=== PATIENT | female | born 1940 | race Caucasian/White ===

== ENCOUNTER → 2017-10-17 08:12 | Outpatient (CLI) | payer OTHER, SELFPAY ==
--- NOTE | 2017-10-17 08:14 | DI.MRI.S_ITS ---
PROCEDURE: MR SHOULDER LT W CON INDICATIONS: suspected rotator cuff tear TECHNIQUE: After the administration of 12 mL of dilute intra-articular Gadolinium contrast, oblique coronal T1 and T2 spin echo with fat saturation, oblique sagittal T1 spin echo with and without fat saturation, oblique sagittal T2 fast spin echo with fat saturation, axial T1 spin echo with fat saturation through the shoulder. COMPARISON: None. FINDINGS: Image quality: Excellent. Rotator cuff: Severe supraspinatus tendinopathy and thickening is present. There is a full-thickness tear involving the critical zone measuring approximately 1 cm on coronal image 11 series 4. The infraspinatus and teres minor tendons appear intact. There is mild thickening and low-grade intrasubstance signal change of the subscapularis tendon suggesting mild tendinopathy and low-grade articular surface fraying. There is atrophy of the supraspinatus muscle belly. There are adjacent cystic/focal fluid collections adjacent to the supraspinatus muscle, near the musculotendinous junction presumably ganglion cysts Bones and bursae: No bone marrow contusions or fractures. Moderate acromioclavicular joint degeneration. The acromion demonstrates conventional anatomy, without an os acromiale. Capsule and soft tissues: There is chronic background circumferential fraying/degeneration of the labrum. However, there is a superimposed posterior labral tear with adjacent segmental osseous degenerative changes in the glenoid rim. Incidental [place] complex anatomic variation is noted. The glenohumeral ligaments appear intact. The long head of the biceps tendon demonstrates normal location and morphology. The rotator interval appears normal, without fibrosis. The coracohumeral ligament is of normal thickness. No intra-articular bodies. IMPRESSION: Full-thickness tear of the critical zone of the supraspinatus tendon. Atrophy of the supraspinatus muscle belly. Subscapularis tendinopathy and low-grade articular surface fraying. Posterior labral tear (chronic) with background circumferential age related degeneration of the labrum. Dictated by: Luis Alberto Fischer M.D. on 10/17/2017 at 9:44 Approved by: Luis Alberto Fischer M.D. on 10/17/2017 at 9:59
--- NOTE | 2017-10-17 08:14 | DI.RAD.S_ITS ---
PROCEDURE: FL ARTHROGRAM SHOULDER LT INDICATIONS: Suspected rotator cuff tear. TECHNIQUE: The indications, alternatives, benefits, risks, and complications of the procedure were explained to the patient. Written informed consent was obtained and placed in the chart. The left shoulder was examined fluoroscopically and a site for needle placement chosen for entry into the glenohumeral joint from an anterior approach. The skin was prepped and draped in a sterile fashion, and 1% lidocaine infiltrated from skin down to joint capsule. A spinal needle was inserted into the glenohumeral joint, and a small amount of iodinated contrast media injected to confirm intra-articular placement of the needle tip. This was followed by approximately 12 mL dilute solution of a gadolinium containing MR contrast agent. The needle was removed and a dressing was applied. The patient was given postprocedural instructions and sent to the MR suite for MR imaging. FINDINGS: A single fluoroscopic spot image demonstrates intra-articular location of injected iodinated contrast. IMPRESSION: Successful fluoroscopically guided administration of dilute Gadolinium solution into the left shoulder joint for MR arthrogram. Dictated by: Gil Corrales M.D. on 10/17/2017 at 9:55 Approved by: Gil Corrales M.D. on 10/17/2017 at 10:04
== END ==
PROVIDERS: Family Provider Family Medicine; PCP Family Medicine; Visit Provider Family Medicine
DX: M75.102 Unspecified rotator cuff tear or rupture of left shoulder, not specified as traumatic (principal); S43.402A Unspecified sprain of left shoulder joint, initial encounter; M75.92 Shoulder lesion, unspecified, left shoulder; E03.9 Hypothyroidism, unspecified; M85.88 Other specified disorders of bone density and structure, other site; Z78.0 Asymptomatic menopausal state; G89.29 Other chronic pain; Z87.891 Personal history of nicotine dependence
CPT/HCPCS: 23350; 73040; 73222; 77002; 77080

== ENCOUNTER → 2018-02-16 07:41 | Outpatient (CLI) | payer OTHER, SELFPAY ==
[2018-02-16 08:20] LABS: Add Manual Diff / Slide Review NO; Basophils Percent Auto 0.9 % (0-2); Eosinophils Percent Auto 1.3 % (2-4); Hematocrit 38.7 % (36-46); Hemoglobin 13.2 g/dL (12.0-16.0); Mean Corpuscular HGB Conc 34.2 % (30-36); Mean Corpuscular Hemoglobin 31.8 PG (26-34); Monocytes Percent Auto 5.8 % (3-14); Neutrophils Absolute Auto 4300 /uL (3000-5900); Platelet Count 278 X10^3/uL (150-400); Red Blood Cell Count 4.16 X10^6/uL (4.0-5.2); Red Cell Distribution Width 13.5 % (11.6-14.8); White Blood Cell Count 7.2 X10^3/uL (4.5-11.0)
[2018-02-16 08:50] LABS: Alanine Aminotransferase 26 IU/L (9-52); Albumin 4.5 g/dL (3.5-5.0); Albumin Globulin Ratio 1.6 (1.0-2.8); Alkaline Phosphatase 84 U/L (38-126); Aspartate Aminotransferase 28 IU/L (14-36); BUN Creatinine Ratio 17.5 (6-22); Bilirubin Total 0.6 mg/dL (0.2-1.3); Blood Urea Nitrogen 14 mg/dL (7-17); Calcium 9.4 mg/dL (8.4-10.2); Carbon Dioxide 30 mmol/L (22-32); Chloride 102 mmol/L (98-107); Cholesterol 218 mg/dL (140-199); Estimated Glomerular Filt Rate > 60.0 mL/min (>60); Globulin 2.8 g/dL (1.7-4.1); Glucose 101 mg/dL (80-110); HDL Cholesterol 59 mg/dL (40-60); HEMOLYSIS < 15 (0-50); LDL Cholesterol Calculated 143 mg/dL (<100); Potassium 4.2 mmol/L (3.4-5.1); Sodium 143 mmol/L (137-145); Total Protein 7.3 g/dL (6.3-8.2); Triglycerides 78 mg/dL (35-150)
[2018-02-16 09:23] LABS: TSH w/ Reflex to FT4 2.25 uIU/mL (0.47-4.68)
== END ==
PROVIDERS: Family Medicine; PCP Student in an Organized Health Care Education/Training Program; Visit Provider Student in an Organized Health Care Education/Training Program
DX: L40.50 Arthropathic psoriasis, unspecified (principal); E78.5 Hyperlipidemia, unspecified; E03.9 Hypothyroidism, unspecified
CPT/HCPCS: 36415; 80053; 80061; 84443; 85025

== ENCOUNTER → 2018-12-06 09:29 | Outpatient (CLI) | payer MEDICARE, SELFPAY ==
[2018-12-06 10:47] LABS: Add Manual Diff / Slide Review NO; Basophils Absolute Auto 100 /uL (0-100); Eosinophils Absolute Auto 200 /uL (0-450); Eosinophils Percent Auto 2.5 % (2-4); Hematocrit 42.1 % (36-46); Hemoglobin 14.4 g/dL (12.0-16.0); Lymphocytes Absolute Auto 1500 /uL (1100-4500); Lymphocytes Percent Auto 23.3 % (25-40); Mean Corpuscular HGB Conc 34.2 % (30-36); Mean Corpuscular Hemoglobin 31.5 PG (26-34); Monocytes Absolute Auto 400 /uL (0-900); Monocytes Percent Auto 6.3 % (3-14); Neutrophils Absolute Auto 4400 /uL (1500-7000); Neutrophils Percent Auto 66.9 % (50-75); Platelet Count 308 X10^3/uL (150-400); Red Blood Cell Count 4.57 X10^6/uL (4.0-5.2); Red Cell Distribution Width 12.7 % (11.6-14.8); White Blood Cell Count 6.6 X10^3/uL (4.5-11.0)
[2018-12-06 11:52] LABS: HEMOLYSIS < 15 (0-50); Sodium 140 mmol/L (137-145)
[2018-12-06 11:54] LABS: Alanine Aminotransferase 24 IU/L (9-52); Albumin 4.7 g/dL (3.5-5.0); Albumin Globulin Ratio 1.7 (1.0-2.8); Alkaline Phosphatase 102 U/L (38-126); Aspartate Aminotransferase 30 IU/L (14-36); BUN Creatinine Ratio 14.3 (6-22); Bilirubin Total 0.8 mg/dL (0.2-1.3); Blood Urea Nitrogen 10 mg/dL (7-17); Calcium 9.7 mg/dL (8.4-10.2); Carbon Dioxide 25 mmol/L (22-32); Chloride 101 mmol/L (98-107); Estimated Glomerular Filt Rate > 60.0 mL/min (>60); Globulin 2.8 g/dL (1.7-4.1); Glucose 134 mg/dL (80-110); Potassium 4.2 mmol/L (3.4-5.1); Total Protein 7.5 g/dL (6.3-8.2)
[2018-12-06 12:02] LABS: Hepatitis B Surface Antigen NEGATIVE s/c (NEGATIVE)
[2018-12-06 12:11] LABS: HIV 1 and 2 Antibody NEGATIVE (NEGATIVE); Hep C Virus Ab w/Reflex Quant NEGATIVE s/c (NEGATIVE)
[2018-12-09 14:01] LABS: Mitogen-NIL 9.31 IU/mL; QuantiFERON TB NEGATIVE (Negative); TB1-NIL 0.02 IU/mL; TB2-NIL 0.01 IU/mL
== END ==
PROVIDERS: PCP Student in an Organized Health Care Education/Training Program; Visit Provider Physician Assistant
DX: L40.0 Psoriasis vulgaris (principal)
CPT/HCPCS: 36415; 80053; 85025; 86480; 86703; 86803; 87340

== ENCOUNTER → 2019-03-06 09:49 | Outpatient (CLI) | payer MEDICARE, SELFPAY ==
[2019-03-09 14:10] LABS: Mitogen-NIL > 10.00 IU/mL; NIL 0.03 IU/mL; QuantiFERON TB NEGATIVE (Negative); TB1-NIL < 0.01 IU/mL; TB2-NIL < 0.01 IU/mL
== END ==
PROVIDERS: Family Provider Nurse Practitioner Psychiatric/Mental Health; PCP Nurse Practitioner; Visit Provider Physician Assistant
DX: L40.0 Psoriasis vulgaris (principal)
CPT/HCPCS: 36415; 86480

== ENCOUNTER → 2019-08-14 07:29 | Outpatient (CLI) | payer OTHER, SELFPAY ==
[2019-08-14 09:42] LABS: Alanine Aminotransferase 39 IU/L (<35); Albumin 4.5 g/dL (3.5-5.0); Albumin Globulin Ratio 1.5 (1.0-2.8); Alkaline Phosphatase 104 U/L (38-126); Aspartate Aminotransferase 47 IU/L (14-36); BUN Creatinine Ratio 14.4 (6-22); Bilirubin Total 0.4 mg/dL (0.2-1.3); Blood Urea Nitrogen 13 mg/dL (7-17); Calcium 9.2 mg/dL (8.4-10.2); Carbon Dioxide 28 mmol/L (22-32); Chloride 103 mmol/L (98-107); Estimated Glomerular Filt Rate > 60.0 mL/min (>60); Globulin 3.1 g/dL (1.7-4.1); Glucose 104 mg/dL (80-110); HEMOLYSIS < 15 (0-50); Potassium 4.9 mmol/L (3.4-5.1); Sodium 139 mmol/L (137-145); Total Protein 7.6 g/dL (6.3-8.2)
[2019-08-14 10:39] LABS: Microalbumin Urine Random < 0.6 mg/dL (0-1.6)
[2019-08-14 12:34] LABS: Cholesterol 227 mg/dL (140-199); HDL Cholesterol 53 mg/dL (40-60); LDL Cholesterol Calculated 162 mg/dL (<100); Triglycerides 59 mg/dL (35-150)
[2019-08-14 12:48] LABS: Free T3, Triiodothyronine Free 2.89 pg/mL (2.77-5.27); Free T4, Direct Thyroxine 1.04 ng/dL (0.78-2.19)
== END ==
PROVIDERS: Family Provider Nurse Practitioner Psychiatric/Mental Health; PCP Nurse Practitioner; Referring Provider Nurse Practitioner; Visit Provider Nurse Practitioner
DX: Z13.220 Encounter for screening for lipoid disorders (principal); Z13.6 Encounter for screening for cardiovascular disorders; E78.2 Mixed hyperlipidemia; F32.9 Major depressive disorder, single episode, unspecified; F39 Unspecified mood [affective] disorder; I10 Essential (primary) hypertension
CPT/HCPCS: 36415; 80053; 80061; 82043; 82570; 84439; 84443; 84481

== ENCOUNTER → 2019-08-30 09:11 | Outpatient (CLI) | payer OTHER, SELFPAY ==
[2019-08-31 00:36] LABS: HBsAg Screen Negative (Negative); Hepatitis A Antibody IgM Negative (Negative); Hepatitis B Core Antibody IgM Negative (Negative); Hepatitis C Antibody <0.1 s/co ratio (0.0-0.9)
== END ==
PROVIDERS: Family Provider Nurse Practitioner Psychiatric/Mental Health; PCP Nurse Practitioner; Referring Provider Nurse Practitioner; Visit Provider Nurse Practitioner
DX: R74.0 Nonspecific elevation of levels of transaminase and lactic acid dehydrogenase [LDH] (principal)
CPT/HCPCS: 36415; 80074

== ENCOUNTER → 2019-09-26 10:00 | Outpatient (CLI) | payer OTHER, SELFPAY ==
[2019-09-26 10:30] LABS: Add Manual Diff / Slide Review NO; Basophils Absolute Auto 100 /uL (0-100); Basophils Percent Auto 0.7 % (0-2); Eosinophils Absolute Auto 100 /uL (0-450); Hematocrit 42.2 % (36-46); Hemoglobin 14.1 g/dL (12.0-16.0); Lymphocytes Absolute Auto 2400 /uL (1100-4500); Lymphocytes Percent Auto 30.2 % (25-40); Mean Corpuscular HGB Conc 33.5 % (30-36); Mean Corpuscular Hemoglobin 32.1 PG (26-34); Mean Corpuscular Volume 95.8 fL (80-100); Monocytes Absolute Auto 500 /uL (0-900); Monocytes Percent Auto 6.1 % (3-14); Neutrophils Absolute Auto 4900 /uL (1500-7000); Platelet Count 256 X10^3/uL (150-400); Red Cell Distribution Width 13.6 % (11.6-14.8)
[2019-09-26 10:50] LABS: Alanine Aminotransferase 28 IU/L (<35); Albumin 4.3 g/dL (3.5-5.0); Albumin Globulin Ratio 1.5 (1.0-2.8); Alkaline Phosphatase 78 U/L (38-126); Aspartate Aminotransferase 39 IU/L (14-36); BUN Creatinine Ratio 13.4 (6-22); Bilirubin Total 0.6 mg/dL (0.2-1.3); Bilirubin Unconjugated 0.6 mg/dL (0.0-1.1); Blood Urea Nitrogen 11 mg/dL (7-17); Calcium 9.6 mg/dL (8.4-10.2); Carbon Dioxide 29 mmol/L (22-32); Chloride 103 mmol/L (98-107); Estimated Glomerular Filt Rate > 60.0 mL/min (>60); Globulin 2.8 g/dL (1.7-4.1); Glucose 123 mg/dL (80-110); HEMOLYSIS < 15 (0-50); Potassium 4.1 mmol/L (3.4-5.1); Sodium 139 mmol/L (137-145); Total Protein 7.1 g/dL (6.3-8.2)
== END ==
PROVIDERS: Family Provider Nurse Practitioner Psychiatric/Mental Health; PCP Nurse Practitioner; Referring Provider Physician Assistant; Visit Provider Physician Assistant
DX: L40.0 Psoriasis vulgaris (principal)
CPT/HCPCS: 36415; 80048; 80076; 85025

== ENCOUNTER → 2020-02-26 09:57 | Outpatient (CLI) | payer OTHER, SELFPAY ==
--- NOTE | 2020-02-26 10:09 | DI.RAD.S_ITS ---
PROCEDURE: XR CHEST 2V INDICATIONS: unintentional weight loss, previous smoker TECHNIQUE: 2 views of the chest were acquired. COMPARISON: RG, XR CXR 1 VIEW, 11/13/2005, 11:36. FINDINGS: Surgical changes and devices: None. Lungs and pleura: Hyperinflation consistent with COPD. Lungs are clear. No pleural effusions or pneumothorax. Mediastinum: Mediastinal contours are normal. Heart size is normal. Bones and chest wall: No suspicious bony abnormalities. Soft tissues appear unremarkable. IMPRESSION: 1. Hyperinflation consistent with COPD. 2. No acute cardiopulmonary disease. Dictated by: Jose Woods M.D. on 02/26/2020 at 10:47 Approved by: Jose Woods M.D. on 02/26/2020 at 10:48
[2020-02-26 12:22] LABS: Add Manual Diff / Slide Review NO; Basophils Absolute Auto 100 /uL (0-100); Basophils Percent Auto 0.8 % (0-2); Eosinophils Absolute Auto 100 /uL (0-450); Hematocrit 40.9 % (36-46); Hemoglobin 13.9 g/dL (12.0-16.0); Lymphocytes Absolute Auto 2300 /uL (1100-4500); Lymphocytes Percent Auto 29.9 % (25-40); Mean Corpuscular HGB Conc 33.8 % (30-36); Mean Corpuscular Hemoglobin 32.3 PG (26-34); Mean Corpuscular Volume 95.3 fL (80-100); Monocytes Absolute Auto 400 /uL (0-900); Monocytes Percent Auto 5.5 % (3-14); Neutrophils Absolute Auto 4900 /uL (1500-7000); Neutrophils Percent Auto 62.8 % (50-75); Platelet Count 238 X10^3/uL (150-400); Red Cell Distribution Width 13.4 % (11.6-14.8); White Blood Cell Count 7.7 X10^3/uL (4.5-11.0)
[2020-02-26 12:51] LABS: Alanine Aminotransferase 29 IU/L (<35); Albumin 4.2 g/dL (3.5-5.0); Albumin Globulin Ratio 1.4 (1.0-2.8); Alkaline Phosphatase 91 U/L (38-126); Aspartate Aminotransferase 41 IU/L (14-36); BUN Creatinine Ratio 9.2 (6-22); Bilirubin Total 0.6 mg/dL (0.2-1.3); Blood Urea Nitrogen 7 mg/dL (7-17); Calcium 8.9 mg/dL (8.4-10.2); Carbon Dioxide 29 mmol/L (22-32); Chloride 104 mmol/L (98-107); Estimated Glomerular Filt Rate > 60.0 mL/min (>60); Globulin 2.9 g/dL (1.7-4.1); Glucose 89 mg/dL (80-110); HEMOLYSIS < 15 (0-50); Potassium 4.1 mmol/L (3.4-5.1); Sodium 139 mmol/L (137-145); Total Protein 7.1 g/dL (6.3-8.2)
[2020-02-26 12:52] LABS: Erythrocyte Sedimentation Rate 8 MM/HR (0-20)
[2020-02-26 12:58] LABS: Free T3, Triiodothyronine Free 3.14 pg/mL (2.77-5.27); Free T4, Direct Thyroxine 1.14 ng/dL (0.78-2.19)
[2020-02-26 13:11] LABS: Thyroid Stimulating Hormone 0.928 uIU/mL (0.47-4.68)
== END ==
PROVIDERS: Family Provider Nurse Practitioner Psychiatric/Mental Health; PCP Nurse Practitioner; Referring Provider Nurse Practitioner; Visit Provider Nurse Practitioner
DX: R63.4 Abnormal weight loss (principal); Z87.891 Personal history of nicotine dependence
CPT/HCPCS: 36415; 71046; 80053; 84439; 84443; 84481; 85025; 85651

== ENCOUNTER → 2020-04-24 08:43 | Outpatient (CLI) | payer MEDICARE, SELFPAY ==
[2020-04-24 09:35] LABS: Add Manual Diff / Slide Review NO; Basophils Absolute Auto 100 /uL (0-100); Basophils Percent Auto 0.8 % (0-2); Eosinophils Absolute Auto 100 /uL (0-450); Eosinophils Percent Auto 1.3 % (2-4); Hematocrit 40.8 % (36-46); Hemoglobin 14.1 g/dL (12.0-16.0); Lymphocytes Absolute Auto 2000 /uL (1100-4500); Lymphocytes Percent Auto 27.7 % (25-40); Mean Corpuscular HGB Conc 34.7 % (30-36); Mean Corpuscular Hemoglobin 33.3 PG (26-34); Monocytes Absolute Auto 400 /uL (0-900); Monocytes Percent Auto 5.8 % (3-14); Neutrophils Absolute Auto 4600 /uL (1500-7000); Neutrophils Percent Auto 64.4 % (50-75); Platelet Count 240 X10^3/uL (150-400); Red Blood Cell Count 4.24 X10^6/uL (4.0-5.2); Red Cell Distribution Width 14.9 % (11.6-14.8); White Blood Cell Count 7.1 X10^3/uL (4.5-11.0)
[2020-04-24 09:39] LABS: Alanine Aminotransferase 34 IU/L (<35); Albumin 4.4 g/dL (3.5-5.0); Albumin Globulin Ratio 1.3 (1.0-2.8); Alkaline Phosphatase 98 U/L (38-126); Aspartate Aminotransferase 45 IU/L (14-36); Bilirubin Total 0.5 mg/dL (0.2-1.3); Bilirubin Unconjugated 0.4 mg/dL (0.0-1.1); Blood Urea Nitrogen 12 mg/dL (7-17); Calcium 9.4 mg/dL (8.4-10.2); Carbon Dioxide 30 mmol/L (22-32); Chloride 105 mmol/L (98-107); Estimated Glomerular Filt Rate > 60.0 mL/min (>60); Globulin 3.4 g/dL (1.7-4.1); Glucose 97 mg/dL (80-110); HEMOLYSIS < 15 (0-50); Potassium 3.8 mmol/L (3.4-5.1); Sodium 141 mmol/L (137-145); Total Protein 7.8 g/dL (6.3-8.2)
[2020-04-24 09:48] LABS: Cholesterol 222 mg/dL (140-199); HDL Cholesterol 71 mg/dL (40-60); LDL Cholesterol Calculated 140 mg/dL (<100); Triglycerides 53 mg/dL (35-150)
[2020-04-25 15:58] LABS: Fecal Immunochemical Test Negative (Negative)
== END ==
PROVIDERS: Family Provider Nurse Practitioner Psychiatric/Mental Health; PCP Nurse Practitioner; Referring Provider Physician Assistant; Visit Provider Physician Assistant
DX: L40.0 Psoriasis vulgaris (principal); R63.4 Abnormal weight loss; E78.5 Hyperlipidemia, unspecified
CPT/HCPCS: 80048; 80061; 80076; 82274; 85025

== ENCOUNTER → 2020-04-25 11:38 | Outpatient (CLI) | payer MEDICARE, SELFPAY ==
[2020-04-28 16:27] LABS: QuantiFERON Mitogen Value 7.42 IU/mL (.); QuantiFERON Nil Value 0.15 IU/mL (.); QuantiFERON TB Gold Plus Negative (Negative); QuantiFERON TB1 Ag Value 0.16 IU/mL (.); QuantiFERON TB2 Ag Value 0.13 IU/mL (.)
== END ==
PROVIDERS: Family Provider Nurse Practitioner Psychiatric/Mental Health; PCP Nurse Practitioner; Referring Provider Physician Assistant; Visit Provider Physician Assistant
DX: L40.0 Psoriasis vulgaris (principal)
CPT/HCPCS: 86480

== ENCOUNTER → 2020-06-01 10:01 | Outpatient (CLI) | payer MEDICARE, SELFPAY ==
--- NOTE | 2020-06-01 10:03 | DI.MRI.S_ITS ---
PROCEDURE: MR SHOULDER RT WO CON INDICATIONS: Unspecified disorder of synovium and tendon, right TECHNIQUE: Noncontrast oblique coronal T2 fast spin echo with fat saturation, oblique sagittal T1 spin echo and T2 fast spin echo with fat saturation, axial T1 spin echo and T2 fast spin echo with fat saturation through the shoulder. COMPARISON: None. FINDINGS: Image quality: Excellent. Rotator cuff: Full-thickness tear involving the anterior supraspinatus tendon measuring 1 cm in the AP dimension as seen on sagittal pulse sequences, and this measures approximately 2.1 cm on coronal pulse sequences for example image 10/10. Infraspinatus tendinopathy and thickening with low-grade bursal and articular surface fraying. The teres minor appears grossly intact. Subscapularis tendinopathy and thickening with interstitial tearing. Borderline atrophy of the supraspinatus muscle. There is mild diffuse fatty infiltration of the rotator cuff muscles. Bones and bursae: No bone marrow contusions or fractures. Moderate hypertrophic acromioclavicular joint degeneration. Glenohumeral joint degeneration also present. Acromion demonstrates conventional anatomy, without an os acromiale. Moderate glenohumeral joint effusion. Capsule and soft tissues: Labrum: Enlargement and hypertrophy of the anteroinferior labrum with amorphous intrasubstance signal changes and marked frayed appearance. There are similar signal changes involving the posterior labrum. This suggests chronic remote tear and or advanced degeneration. Age-appropriate degeneration and fraying of the superior labrum is present. There is chronic circumferential glenoid rim spurring and sclerosis. Long head biceps tendinopathy. Obliteration of the subcoracoid fat signal intensity. Coracohumeral ligament intact. IMPRESSION: Full-thickness tear of the supraspinatus tendon, with borderline atrophy of the muscle. Infraspinatus tendinopathy and thickening with low-grade bursal and articular surface fraying. Subscapularis tendinopathy and interstitial tearing. Degenerative joint disease and moderate effusion. Hypertrophied appearance and amorphous ill-defined internal signal changes involving the anteroinferior and posterior labrum probably reflecting chronic remote tear versus advanced degeneration. Age-appropriate chronic degenerative fraying of the superior labrum. Long head biceps tendinopathy Dictated by: Luis Alberto Fischer M.D. on 06/02/2020 at 8:32 Approved by: Luis Alberto Fischer M.D. on 06/02/2020 at 8:41
== END ==
PROVIDERS: Family Provider Nurse Practitioner Psychiatric/Mental Health; PCP Nurse Practitioner; Referring Provider Orthopaedic Surgery; Visit Provider Orthopaedic Surgery
DX: M75.121 Complete rotator cuff tear or rupture of right shoulder, not specified as traumatic (principal); M19.011 Primary osteoarthritis, right shoulder; M25.411 Effusion, right shoulder
CPT/HCPCS: 73221

== ENCOUNTER 2020-06-25 13:42 | Emergency (ER) | payer MEDICARE, SELFPAY ==
[2020-06-25 13:46] VITALS: BP 185/86; PULSE 69; RESP 15; TEMP 36.4; O2SAT 98; BMI 20.7
[2020-06-25 15:22] VITALS: BP 160/82; PULSE 60; RESP 18; O2SAT 97
--- NOTE | 2020-06-25 16:59 | ED.HEATRA ---
HPI - Head Injury General Chief complaint: Head Injury Stated complaint: Head laceration x30 minutes Time Seen by Provider: 06/25/20 15:28 Source: patient Mode of arrival: Ambulatory Limitations: no limitations History of Present Illness HPI Narrative: 79-year-old woman with a history of psoriatic arthritis was doing some spring cleaning today working on the lower shelf as she stood up a large conch shell on the upper shelf was dislodged and landed on the crown of her head causing a small laceration. There was no loss of consciousness. She describes some musculoskeletal pain in the trapezius muscles bilaterally but no central cervical spine pain. No recent fevers, cough, chills, chest pain, abdominal pain, vomiting, diarrhea, near-syncope. Related Data Home Medications Medication Instructions Recorded Confirmed ascorbic acid (vitamin C) 1,000 mg PO QDAY #0 04/27/17 06/03/20 cholecalciferol (vitamin D3) 1,000 iu PO BID #0 04/27/17 06/03/20 [Vitamin D3] folic acid 0.4 mg PO QDAY #0 04/27/17 06/03/20 aspirin 81 mg tablet,delayed 81 mg PO DAILY 03/08/18 06/03/20 release adalimumab 10 mg/0.1 mL See Rx Instructions SUBCUT Q2W 12/26/18 06/03/20 subcutaneous syringe kit each calcium carbonate 600 mg calcium 600 mg PO DAILY tab 08/31/19 06/03/20 (1,500 mg) tablet multivitamin 1 tab PO DAILY 08/31/19 06/03/20 vitamin B complex 1 cap PO DAILY 08/31/19 06/03/20 omega 4-rrp-fzq-fish oil 1,200 mg 1 cap PO DAILY cap 12/06/19 06/03/20 (144 mg-216 mg) capsule Previous Rx's Medication Instructions Recorded gabapentin 100 mg capsule 100 mg PO TID PRN #90 cap 01/31/20 lamotrigine 100 mg tablet 200 mg PO DAILY #180 tab 02/22/20 levothyroxine 50 mcg tablet 50 mcg PO QDAY #90 tab 02/26/20 gabapentin 300 mg capsule 600 mg PO BEDTIME 90 Days #180 cap 04/01/20 meloxicam 7.5 mg tablet 15 mg PO DAILY #180 tab 04/01/20 prazosin 1 mg capsule 3 mg PO BEDTIME #90 cap 04/25/20 coenzyme Q10-red yeast rice 25 1 cap PO BID #1 cap 06/03/20 mg-600 mg capsule risperidone 0.5 mg tablet 0.5 mg PO DAILY #30 tab 06/03/20 Allergies Allergy/AdvReac Type Severity Reaction Status Date / Time No Known Drug Allergies Allergy Unknown Verified 06/25/20 13:46 [NO KNOWN DRUG ALLERGIES] adhesive [ADHESIVE] AdvReac Mild BLISTER Verified 06/25/20 13:46 Review of Systems Review of Systems Narrative: Remainder of review of systems is otherwise unremarkable Patient History Medical History Alcohol use disorder, moderate, dependence Atrial fibrillation (2006) Basal cell carcinoma (BCC) of forearm (10/04/14) Cataract (2011) Chicken pox (1945) Chronic back pain (1977) Chronic pain of both shoulders COPD (chronic obstructive pulmonary disease) Depression (1973) Diverticular disease Generalized anxiety disorder Genital warts (1973) Herpes (1974) Hypothyroidism (2014) Measles (1949) Mixed hyperlipidemia Mood disorder Mumps (1953) Nontraumatic incomplete bilateral rotator cuff tear Nontraumatic tear of left supraspinatus tendon Opioid use disorder, mild, abuse Psoriasis (1953) Psoriatic arthritis (2002) PTSD (post-traumatic stress disorder) Retinal detachment (2008) 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 Mother Stroke Social History Smoking Status: Former smoker Smoking Status: Former smoker alcohol intake frequency: holidays/special occasions only Substance Use Type: marijuana Exam Narrative Exam Narrative: General: Alert appropriate in no acute distress HEENT: Small stellate laceration to the crown of the head partial-thickness only. Respiratory: Able to speak in full sentences, no obvious respiratory distress Skin: No obvious rashes, warm and dry Neurologic: Grossly intact no obvious asymmetries or abnormalities Psych, appropriate insight and affect, cooperative Initial Vital Signs Initial Vital Signs: Vital Signs Temperature 97.5 F L 06/25/20 13:46 Pulse Rate 69 06/25/20 13:46 Respiratory Rate 15 06/25/20 13:46 Blood Pressure 185/86 H 06/25/20 13:46 Pulse Oximetry 98 06/25/20 13:46 Procedures Laceration Repair Stellate laceration to the crown of the head: Site: scalp Description: stellate Depth: simple, single layer Skin layer closed with: olivia Number of sutures: 2 Course Vital Signs Vital signs: Vital Signs - 8 hr 06/25/20 13:46 06/25/20 15:22 06/25/20 17:12 Temperature 97.5 F L Pulse Rate 69 60 64 Respiratory Rate 15 18 18 Blood Pressure 185/86 H 160/82 H 131/70 Pulse Oximetry 98 97 97 MDM - Head Injury MDM Narrative Medical decision making narrative: 79-year-old woman who had a conch shell cause a laceration to the top of her head after falling off a shelf. Wound was cleaned 2 olivia were used for hemostasis. No other signs of injury. Recommended suture removal in 7 days. Safe for home discharge Discharge Plan Departure Patient Disposition: Home Clinical Impression: Laceration Instructions: DI for Laceration Repair -- [place] Activity Restrictions/Additional Instructions: Thank you for coming in today I am sorry that shell decided to attack you. You had a small cut on the top of your head with a small amount of sand/shell debris in the shallow wound that was easy to cleanout. I used 2 olivia to hold the edges together and make sure the bleeding was controlled It is okay to use just warm water to rinse your scalp when you get home this evening. If there was some bleeding simply hold bit of pressure to the area. Be careful with brushing her hair to not scratch at the olivia and cause additional pain. I would expect of mild headache as well as some neck tenderness and it is okay to use Tylenol and tramadol in addition to the meloxicam that you typically take. The olivia will need to come out on or about July 02. You can ask your primary care doctor to help you with this, go to the walk-in clinic or return to the emergency department to have the olivia removed. If you notice other wounds or develop new findings, please feel free to return for further evaluation. I hope you heal quickly. Prescriptions: No Action multivitamin Tablet 1 tab PO DAILY RF: 0 vitamin B complex Capsule 1 cap PO DAILY RF: 0 calcium carbonate 600 mg calcium (1,500 mg) tablet 600 mg PO DAILY RF: 0 Humira(CF) 10 mg/0.1 mL syringe kit See Rx Instructions SUBCUT Q2W RF: 0 omega 8-jnj-lvk-fish oil [Fish Oil] 1,200 (144-216) mg capsule 1 cap PO DAILY RF: 0 folic acid 0.4 MG tablet 0.4 mg PO QDAY Qty: 0 RF: 0 cholecalciferol (vitamin D3) [Vitamin D3] 1,000 UNIT tablet 1,000 iu PO BID Qty: 0 RF: 0 ascorbic acid (vitamin C) 500 MG tablet 1,000 mg PO QDAY Qty: 0 RF: 0 gabapentin 100 mg capsule 100 mg PO TID PRN (Reason: anxiety) Qty: 90 RF: 0 Hold Instructions: increased 300mg dosing. lamotrigine 100 mg tablet 200 mg PO DAILY Qty: 180 RF: 1 prazosin 1 mg capsule 3 mg PO BEDTIME Qty: 90 RF: 0 risperidone [Risperdal] 0.5 mg tablet 0.5 mg PO DAILY Qty: 30 RF: 1 aspirin [Adult Low Dose Aspirin] 81 mg tablet,delayed release (DR/EC) 81 mg PO DAILY RF: 0 gabapentin 300 mg capsule 600 mg PO BEDTIME 90 Days Qty: 180 RF: 3 meloxicam 7.5 mg tablet 15 mg PO DAILY Qty: 180 RF: 1 levothyroxine [Synthroid] 50 mcg tablet 50 mcg PO QDAY Qty: 90 RF: 1 co Q10-red yeast rice 25-600 mg capsule 1 cap PO BID Qty: 1 RF: 0 Referrals: Mercedes Lopes ARNP [Primary Care Provider] -
[2020-06-25 17:12] VITALS: BP 131/70; PULSE 64; RESP 18; O2SAT 97
== END 2020-06-25 17:12 | disposition home or self-care (01) ==
PROVIDERS: Emergency Provider Emergency Medicine; Family Provider Nurse Practitioner Psychiatric/Mental Health; PCP Nurse Practitioner
DX: S01.01XA Laceration without foreign body of scalp, initial encounter (principal); W20.8XXA Other cause of strike by thrown, projected or falling object, initial encounter
CPT/HCPCS: 12001; 99281; 99282

== ENCOUNTER → 2020-12-29 08:53 | Outpatient (CLI) | payer MEDICARE, SELFPAY ==
[2020-12-29 09:26] LABS: Add Manual Diff / Slide Review NO; Basophils Absolute Auto 0 /uL (0-100); Basophils Percent Auto 0.6 % (0-2); Eosinophils Absolute Auto 300 /uL (0-450); Eosinophils Percent Auto 3.5 % (2-4); Hematocrit 42.9 % (36-46); Hemoglobin 14.4 g/dL (12.0-16.0); Lymphocytes Absolute Auto 2500 /uL (1100-4500); Lymphocytes Percent Auto 31.5 % (25-40); Mean Corpuscular HGB Conc 33.6 % (30-36); Mean Corpuscular Hemoglobin 32.7 PG (26-34); Mean Corpuscular Volume 97.2 fL (80-100); Monocytes Absolute Auto 500 /uL (0-900); Monocytes Percent Auto 6.2 % (3-14); Neutrophils Absolute Auto 4600 /uL (1500-7000); Neutrophils Percent Auto 58.2 % (50-75); Platelet Count 244 X10^3/uL (150-400); Red Blood Cell Count 4.41 X10^6/uL (4.0-5.2); Red Cell Distribution Width 13.3 % (11.6-14.8); White Blood Cell Count 7.9 X10^3/uL (4.5-11.0)
[2020-12-29 10:10] LABS: Alanine Aminotransferase 34 IU/L (<35); Albumin 4.1 g/dL (3.5-5.0); Albumin Globulin Ratio 1.4 (1.0-2.8); Alkaline Phosphatase 117 U/L (38-126); Aspartate Aminotransferase 44 IU/L (14-36); BUN Creatinine Ratio 20.3 (6-22); Bilirubin Total 0.6 mg/dL (0.2-1.3); Blood Urea Nitrogen 15 mg/dL (7-17); Calcium 9.1 mg/dL (8.4-10.2); Carbon Dioxide 31 mmol/L (22-32); Chloride 102 mmol/L (98-107); Cholesterol 181 mg/dL (140-199); Estimated Glomerular Filt Rate > 60.0 mL/min (>60); Glucose 100 mg/dL (80-110); HDL Cholesterol 87 mg/dL (40-60); HEMOLYSIS 20 (0-50); LDL Cholesterol Calculated 83 mg/dL (<100); Sodium 139 mmol/L (137-145); Total Protein 7.1 g/dL (6.3-8.2); Triglycerides 53 mg/dL (35-150)
[2020-12-29 10:38] LABS: Thyroid Stimulating Hormone 1.55 uIU/mL (0.47-4.68)
== END ==
PROVIDERS: Family Provider Nurse Practitioner Psychiatric/Mental Health; PCP Nurse Practitioner; Referring Provider Nurse Practitioner; Visit Provider Nurse Practitioner
DX: E03.9 Hypothyroidism, unspecified (principal); E78.2 Mixed hyperlipidemia; F32.9 Major depressive disorder, single episode, unspecified; I10 Essential (primary) hypertension; Z79.899 Other long term (current) drug therapy; E78.5 Hyperlipidemia, unspecified
CPT/HCPCS: 36415; 80053; 80061; 84443; 85025

== ENCOUNTER → 2020-12-31 11:31 | Outpatient (CLI) | payer MEDICARE, SELFPAY ==
--- NOTE | 2020-12-31 11:31 | DI.RAD.S_ITS ---
PROCEDURE: XR DEXA AXIAL SKELETON INDICATIONS: post menopausal osteoporosis COMPARISON: [facility], CR, XR DEXA AXIAL SKELETON, 10/17/2017, 10:23. FINDINGS: This blank DEXA report has been sent in error by the PACS system. The correct and complete report will be forthcoming in 1-2 days. Thank you for your patience and understanding. Dictated by: Iwona Castle MD, PhD on 12/31/2020 at 14:32 Approved by: Iwona Castle MD, PhD on 12/31/2020 at 14:32
--- NOTE | 2020-12-31 11:31 | DI.CT.S_ITS ---
PROCEDURE: CT CHEST ABD PEL W CON INDICATIONS: Progressive Weight Loss, hx of smoking TECHNIQUE: After the administration of oral and intravenous contrast, axial sections acquired from the supraclavicular neck to the pubic symphysis. Coronal and sagittal reformats were performed. For radiation dose reduction, the following was used: automated exposure control, adjustment of mA and/or kV according to patient size. COMPARISON:None. FINDINGS: Image quality: Excellent. CHEST: Lower Neck: No enlarged lymph nodes. Thyroid: Within normal limits. Axillae: No enlarged lymph nodes. Chest Wall: Unremarkable. Lungs and Airways: Presumed a pickle scarring is present. 3 mm right lower lobe nodule series 3, image 91. Pleura: No pneumothorax or pleural effusions. Heart: Heart size is normal. No pericardial effusion. Thoracic Vessels: The aorta and pulmonary arteries demonstrate normal size. Mediastinum and [place]: No enlarged lymph nodes. Esophagus: No wall thickening. No hiatal hernia. ABDOMEN: Liver: Liver is enlarged with steatosis.. Gallbladder: Gallbladder is unremarkable. Biliary ducts: Unremarkable. Pancreas: Unremarkable. Spleen: Unremarkable. Adrenal Glands: Unremarkable. Kidneys and Ureters: Unremarkable. Stomach and Bowel: Stomach, small bowel loops, and colon are unremarkable. Peritoneum: No abnormal intraperitoneal fluid. No free air. Ventral Wall: No hernia. Abdominal Nodes: No retroperitoneal or mesenteric adenopathy by size criteria. Vessels: Aorta and inferior vena cava are normal in size. PELVIS: Pelvic Organs: Unremarkable. Bladder: Unremarkable. Pelvic Nodes: No enlarged lymph nodes. Miscellaneous: No inguinal hernias are seen. Bones: Unremarkable. IMPRESSION: 1. Nonspecific 3 mm right lobe nodule as above. No priors are available for comparison. Recommend interval follow-up as below. 2. Hepatomegaly with steatosis. Dictated by: Irma Jenkins M.D. on 12/31/2020 at 16:28 Approved by: Irma Jenkins M.D. on 12/31/2020 at 16:33
== END ==
PROVIDERS: Family Provider Nurse Practitioner Psychiatric/Mental Health; PCP Nurse Practitioner; Referring Provider Nurse Practitioner; Visit Provider Nurse Practitioner
DX: R91.1 Solitary pulmonary nodule (principal); R63.4 Abnormal weight loss; K76.0 Fatty (change of) liver, not elsewhere classified; M85.852 Other specified disorders of bone density and structure, left thigh; Z78.0 Asymptomatic menopausal state; E07.9 Disorder of thyroid, unspecified; Z87.891 Personal history of nicotine dependence; Z82.62 Family history of osteoporosis
CPT/HCPCS: 71260; 74177; 77080

== ENCOUNTER → 2021-08-24 11:23 | Outpatient (CLI) | payer MEDICARE, SELFPAY ==
[2021-08-24 12:52] LABS: Add Manual Diff / Slide Review NO; Basophils Absolute Auto 100 /uL (0-100); Basophils Percent Auto 0.7 % (0-2); Eosinophils Absolute Auto 100 /uL (0-450); Eosinophils Percent Auto 1.3 % (2-4); Hematocrit 38.6 % (36-46); Lymphocytes Absolute Auto 2100 /uL (1100-4500); Lymphocytes Percent Auto 24.1 % (25-40); Mean Corpuscular HGB Conc 33.7 % (30-36); Mean Corpuscular Hemoglobin 32.9 PG (26-34); Mean Corpuscular Volume 97.7 fL (80-100); Monocytes Absolute Auto 500 /uL (0-900); Monocytes Percent Auto 5.7 % (3-14); Neutrophils Absolute Auto 6000 /uL (1500-7000); Neutrophils Percent Auto 68.2 % (50-75); Platelet Count 280 X10^3/uL (150-400); Red Blood Cell Count 3.95 X10^6/uL (4.0-5.2); Red Cell Distribution Width 13.8 % (11.6-14.8); White Blood Cell Count 8.9 X10^3/uL (4.5-11.0)
[2021-08-24 13:01] LABS: Alanine Aminotransferase 22 IU/L (<35); Albumin Globulin Ratio 1.4 (1.0-2.8); Alkaline Phosphatase 85 U/L (38-126); Aspartate Aminotransferase 34 IU/L (14-36); BUN Creatinine Ratio 17.5 (6-22); Bilirubin Total 0.6 mg/dL (0.2-1.3); Blood Urea Nitrogen 17 mg/dL (7-17); C-Reactive Protein Quant 0.9 mg/dL (<1.0); Calcium 9.2 mg/dL (8.4-10.2); Carbon Dioxide 31 mmol/L (22-32); Chloride 103 mmol/L (98-107); Estimated Glomerular Filt Rate 60 mL/min (>60); Globulin 2.9 g/dL (1.7-4.1); Glucose 98 mg/dL (80-110); HEMOLYSIS < 15 (0-50); Potassium 4.3 mmol/L (3.4-5.1); Sodium 139 mmol/L (137-145); Total Protein 6.9 g/dL (6.3-8.2)
[2021-08-24 13:20] LABS: Erythrocyte Sedimentation Rate 16 MM/HR (0-20)
[2021-08-24 16:51] LABS: Hep C Virus Ab w/Reflex Quant NEGATIVE s/c (NEGATIVE)
[2021-08-26 15:37] LABS: Hepatitis B Virus HBV DNA not detected IU/mL (.)
[2021-08-27 13:45] LABS: QuantiFERON Mitogen Value >10.00 IU/mL (.); QuantiFERON TB Gold Plus Negative (Negative)
== END ==
PROVIDERS: Family Provider Nurse Practitioner Psychiatric/Mental Health; PCP Nurse Practitioner; Referring Provider Internal Medicine Rheumatology; Visit Provider Internal Medicine Rheumatology
DX: L40.59 Other psoriatic arthropathy (principal); Z79.899 Other long term (current) drug therapy
CPT/HCPCS: 36415; 80053; 85025; 85651; 86140; 86480; 86803

== ENCOUNTER → 2021-12-29 11:35 | Outpatient (CLI) | payer MEDICARE, SELFPAY ==
--- NOTE | 2021-12-29 11:45 | DI.CT.S_ITS ---
PROCEDURE: CT CHEST WO CON INDICATIONS: 1 year survaillance, 3mm nodule, right lobe TECHNIQUE: Noncontrast 5 mm thick sections acquired from the pulmonary apices to the posterior costophrenic angles. 1 mm lung window, 5 mm thick coronal and sagittal and 7 mm axial MIP reformats were then acquired. For radiation dose reduction, the following was used: automated exposure control, adjustment of mA and/or kV according to patient size. COMPARISON: [facility], CR, XR DEXA AXIAL SKELETON, 12/31/2020, 12:19. [facility], CT, CT CHEST ABD PEL W CON, 12/31/2020, 13:08. FINDINGS: Image quality: Excellent. Lungs and pleura: No acute air space opacities. No pleural effusions or pneumothorax. Central and peripheral airways are patent and normal in caliber. Apical opacities presumably scarring are unchanged. 3 mm anterior right lower lobe nodule on series 3, image 84 is unchanged. No new additional nodules are identified. Mediastinum: Heart size is normal. No pericardial effusion. No mediastinal adenopathy by size criteria. Thoracic aorta and central pulmonary arteries are normal in size. Esophagus is normal in caliber. No hiatal hernia. Bones and chest wall: No suspicious bony lesions. No vertebral body compression fractures. No axillary or supraclavicular adenopathy by size criteria. Thyroid gland is unremarkable . Abdomen: Visualized upper abdominal solid organs and bowel loops appear normal in the absence of contrast. IMPRESSION: Unchanged 3 mm right lobe nodule. It is stable since 12/31/2020, given stability over a 12 month period, finding is considered benign with no additional follow-up recommended. Fleischner Society criteria for SOLID lung nodule followup. Nodule size (mm)Low-risk patientHigh-risk patient<6 (single or multiple)No routine followup.Optional CT at 12 months. 6-8 (single or multiple)CT at 6-12 months, then optional CT at 18-24 mo.CT at 6-12 months, then CT at 18-24 months. >8 (single)CT, PET-CT, or biopsy at 3 months. Same as for low-risk pts. >8 (multiple)CT at 3-6 months, then optional CT at 18-24 mo.CT at 3-6 months, then CT at 18-24 months. Recommendations do not apply to lung cancer screening, patients with immunosuppression, or patients with known primary cancer. Dictated by: Irma Jenkins M.D. on 12/29/2021 at 15:49 Approved by: Irma Jenkins M.D. on 12/29/2021 at 15:55
== END ==
PROVIDERS: Family Provider Nurse Practitioner Psychiatric/Mental Health; PCP Nurse Practitioner; Referring Provider Nurse Practitioner; Visit Provider Nurse Practitioner
DX: J44.9 Chronic obstructive pulmonary disease, unspecified (principal); R91.1 Solitary pulmonary nodule
CPT/HCPCS: 71250

== ENCOUNTER → 2022-02-01 09:09 | Outpatient (CLI) | payer MEDICARE, SELFPAY ==
[2022-02-01 10:27] LABS: Alanine Aminotransferase 28 IU/L (<35); Albumin 4.2 g/dL (3.5-5.0); Albumin Globulin Ratio 1.3 (1.0-2.8); Alkaline Phosphatase 78 U/L (38-126); Aspartate Aminotransferase 38 IU/L (14-36); Bilirubin Total 0.6 mg/dL (0.2-1.3); Blood Urea Nitrogen 12 mg/dL (7-17); Calcium 8.7 mg/dL (8.4-10.2); Carbon Dioxide 28 mmol/L (22-32); Chloride 101 mmol/L (98-107); Cholesterol 186 mg/dL (140-199); Estimated Glomerular Filt Rate > 60 mL/min (>60); Globulin 3.2 g/dL (1.7-4.1); Glucose 90 mg/dL (80-110); HDL Cholesterol 79 mg/dL (40-60); HEMOLYSIS < 15 (0-50); LDL Cholesterol Calculated 96 mg/dL (<100); Potassium 4.1 mmol/L (3.4-5.1); Sodium 138 mmol/L (137-145); Total Protein 7.4 g/dL (6.3-8.2); Triglycerides 56 mg/dL (35-150)
[2022-02-01 10:38] LABS: Free T3, Triiodothyronine Free 3.22 pg/mL (2.77-5.27); Free T4, Direct Thyroxine 0.92 ng/dL (0.78-2.19)
[2022-02-01 10:48] LABS: Microalbumin Urine Random < 0.6 mg/dL (0-1.6)
[2022-02-01 10:50] LABS: Creatinine Urine Random 49.2 mg/dL
[2022-02-01 10:52] LABS: Thyroid Stimulating Hormone 1.68 uIU/mL (0.47-4.68)
== END ==
PROVIDERS: PCP Nurse Practitioner; Referring Provider Nurse Practitioner; Visit Provider Nurse Practitioner
DX: E03.9 Hypothyroidism, unspecified (principal); E78.5 Hyperlipidemia, unspecified; I10 Essential (primary) hypertension; Z79.899 Other long term (current) drug therapy
CPT/HCPCS: 36415; 80053; 80061; 82043; 82570; 84439; 84443; 84481

== ENCOUNTER → 2022-07-14 11:27 | Outpatient (CLI) | payer MEDICARE, SELFPAY ==
[2022-07-14 11:55] LABS: Add Manual Diff / Slide Review NO; Basophils Absolute Auto 100 /uL (0-100); Basophils Percent Auto 0.7 % (0-2); Eosinophils Absolute Auto 100 /uL (0-450); Eosinophils Percent Auto 1.1 % (2-4); Hematocrit 39.5 % (36-46); Hemoglobin 13.5 g/dL (12.0-16.0); Lymphocytes Absolute Auto 2600 /uL (1100-4500); Lymphocytes Percent Auto 30.5 % (25-40); Mean Corpuscular HGB Conc 34.3 % (30-36); Mean Corpuscular Hemoglobin 33.6 PG (26-34); Monocytes Absolute Auto 600 /uL (0-900); Monocytes Percent Auto 6.7 % (3-14); Neutrophils Absolute Auto 5200 /uL (1500-7000); Platelet Count 230 X10^3/uL (150-400); Red Blood Cell Count 4.03 X10^6/uL (4.0-5.2); Red Cell Distribution Width 14.3 % (11.6-14.8); White Blood Cell Count 8.5 X10^3/uL (4.5-11.0)
[2022-07-14 12:10] LABS: Erythrocyte Sedimentation Rate 8 MM/HR (0-20)
[2022-07-14 12:58] LABS: Alanine Aminotransferase 33 IU/L (<35); Albumin 4.4 g/dL (3.5-5.0); Albumin Globulin Ratio 1.5 (1.0-2.8); Alkaline Phosphatase 99 U/L (38-126); Aspartate Aminotransferase 40 IU/L (14-36); Bilirubin Total 0.7 mg/dL (0.2-1.3); Blood Urea Nitrogen 17 mg/dL (7-17); C-Reactive Protein Quant < 0.5 mg/dL (<1.0); Calcium 9.3 mg/dL (8.4-10.2); Carbon Dioxide 30 mmol/L (22-32); Chloride 100 mmol/L (98-107); Estimated Glomerular Filt Rate > 60 mL/min (>60); Glucose 80 mg/dL (80-110); HEMOLYSIS < 15 (0-50); Potassium 4.1 mmol/L (3.4-5.1); Sodium 137 mmol/L (137-145); Total Protein 7.4 g/dL (6.3-8.2)
== END ==
PROVIDERS: PCP Nurse Practitioner; Referring Provider Internal Medicine Rheumatology; Visit Provider Internal Medicine Rheumatology
DX: L40.50 Arthropathic psoriasis, unspecified (principal); Z79.899 Other long term (current) drug therapy
CPT/HCPCS: 36415; 80053; 85025; 85651; 86140

== ENCOUNTER → 2023-01-28 09:46 | Outpatient (CLI) | payer MEDICARE, SELFPAY ==
--- NOTE | 2023-01-28 09:47 | DI.RAD.S_ITS ---
Bone Density Report Name: FRANDY CRUZ Age: 82 Sex: Female Ethnicity: White Date of : 1940 Indication: postmenopausal; screening for osteoporosis; history of glucocorticoids; rheumatoid arthritis; Referring Provider: JAZMÍN MORALES Study: Bone densitometry was performed. Exam Date: January 28, 2023 Accession number: [id number] Bone Density: Region BMD T-score Z-score Classification AP Spine(L1, L3, L4) 0.889 -1.5 1.2 Osteopenia Femoral Neck (Left) 0.737 -1.0 1.3 Normal Total Hip (Left) 0.868 -0.6 1.5 Normal Femoral Neck (Right) 0.734 -1.0 1.3 Normal Total Hip (Right) 0.832 -0.9 1.2 Normal Total Hip Mean 0.850 -0.8 1.4 Normal World Health Organization criteria for BMD impression classify patients as: Normal (T-score at or above -1.0), Osteopenia (T-score between -1.0 and -2.5), or Osteoporosis (T-score at or below -2.5). 10-year Fracture Risk(1): Major Osteoporotic Fracture 23% Hip Fracture 7.4% Reported Risk Factors: [place] (), Neck BMD=0.737, BMI=19.7, glucocorticoids, rheumatoid arthritis, alcohol use (1) FRAX(R) Version 3.08. Fracture probability calculated for an untreated patient. Fracture probability may be lower if the patient has received treatment. Previous Exams: -- Region Exam Age BMD T-score BMD Change BMD Change Date g/cm2 vs Baseline vs Previous -- AP Spine (L1,L3-L4) 01/28/2023 82 0.889 -1.5 -0.087 (-8.9%)# -0.060 (-6.4%)# 12/31/2020 80 0.949 -0.9 -0.026 (-2.7%)* 0.023 (2.5%) 10/17/2017 76 0.926 -1.2 -0.049 (-5.0%)* -0.030 (-3.2%)* 10/15/2015 74 0.957 -0.9 -0.018 (-1.9%) 0.032 (3.5%)* 01/11/2012 71 0.925 -1.2 -0.051 (-5.2%)* -0.051 (-5.2%)* 10/06/2006 65 0.975 -0.7 Total Hip(Left) 01/28/2023 82 0.868 -0.6 -0.100 (-10.3%)# -0.001 (-0.1%)# 12/31/2020 80 0.869 -0.6 -0.099 (-10.2%)* -0.050 (-5.5%)* 10/17/2017 76 0.919 -0.2 -0.048 (-5.0%)* 0.001 (0.1%) 10/15/2015 74 0.918 -0.2 -0.050 (-5.1%)* 0.026 (2.9%) 01/11/2012 71 0.892 -0.4 -0.076 (-7.8%)* -0.076 (-7.8%)* 10/06/2006 65 0.968 0.2 Total Hip(Right) 01/28/2023 82 0.832 -0.9 -0.116 (-12.3%)# -0.035 (-4.0%)# 12/31/2020 80 0.867 -0.6 -0.081 (-8.6%)* -0.020 (-2.2%) 10/17/2017 76 0.886 -0.5 -0.062 (-6.5%)* -0.034 (-3.7%)* 10/15/2015 74 0.920 -0.2 -0.028 (-3.0%)* 0.009 (0.9%) 01/11/2012 71 0.911 -0.2 -0.037 (-3.9%)* -0.037 (-3.9%)* 10/06/2006 65 0.948 0.1 -- *Denotes significance at 95% confidence level, LSC for AP Spine = 0.022 g/cm2, LSC for Total Hip = 0.027 g/cm2 Rate of change results reflect vertebral levels common to all scans # Denotes dissimilar scan types or analysis methods Impression: The patient has low bone mass, based on the Total Spine T-score. The patient has an estimated ten-year risk of hip fracture of 7.4% and an estimated ten-year risk of major fracture of 23%, based on the WHO FRAX algorithm. The patient has risk factors, including: excessive alcohol use, history of glucocorticoid therapy. No significant bone loss was observed. Discussion: BONE DENSITY IS LOW AT ONE OR MORE SKELETAL SITES. THE PATIENT'S BMD AND CLINICAL RISK FACTORS CONTRIBUTE TO THIS PATIENT'S HIGH RISK OF FRACTURE. This patient's lowest T-score is low at one or more skeletal sites. It meets the World Health Organization's (WHO) criteria for low bone mass (T-score between -1.0 and -2.5). The patient's 10-year risk of hip fracture and 10 year risk of a major osteoporotic fracture as calculated by FRAX exceeds the threshold where pharmacological therapy is recommended by the National Osteoporosis Foundation (NOF). However, all treatment decisions require clinical judgment and consideration of individual patient factors, including patient preferences, comorbidities, previous drug use, risk factors not captured in the FRAX model (e.g., frailty, falls, vitamin D deficiency, increased bone turnover, interval significant decline in bone density) and possible under or overestimation of fracture risk by FRAX. The patient should follow a healthful lifestyle (good nutrition with adequate calcium and vitamin D, and appropriate weight-bearing exercise). Follow-Up: Consider a repeat BMD and Vertebral Fracture Assessment (VFA) exam in 2 years or sooner if medically necessary, to reassess this patient's status. Reported by: SURAJ SARGENT M.D. on 01/28/2023 10:30:00 AM.
[2023-01-28 11:27] LABS: Alanine Aminotransferase 28 IU/L (<35); Albumin 4.2 g/dL (3.5-5.0); Albumin Globulin Ratio 1.3 (1.0-2.8); Alkaline Phosphatase 61 U/L (38-126); Aspartate Aminotransferase 38 IU/L (14-36); BUN Creatinine Ratio 13.9 (6-22); Bilirubin Total 0.9 mg/dL (0.2-1.3); Blood Urea Nitrogen 11 mg/dL (7-17); Calcium 9.1 mg/dL (8.4-10.2); Carbon Dioxide 28 mmol/L (22-32); Chloride 100 mmol/L (98-107); Cholesterol 200 mg/dL (140-199); Estimated Glomerular Filt Rate > 60 mL/min (>60); Globulin 3.2 g/dL (1.7-4.1); Glucose 91 mg/dL (80-110); HDL Cholesterol 86 mg/dL (40-60); HEMOLYSIS < 15 (0-50); LDL Cholesterol Calculated 100 mg/dL (<100); Potassium 3.8 mmol/L (3.4-5.1); Sodium 136 mmol/L (137-145); Total Protein 7.4 g/dL (6.3-8.2); Triglycerides 70 mg/dL (35-150)
[2023-01-28 11:53] LABS: TSH w/ Reflex to FT4 2.04 uIU/mL (0.47-4.68)
[2023-01-28 11:55] LABS: Creatinine Urine Random 22.2 mg/dL
[2023-01-28 12:08] LABS: Microalbumin Urine Random < 0.6 mg/dL (0-1.6)
== END ==
PROVIDERS: PCP Nurse Practitioner; Referring Provider Nurse Practitioner; Visit Provider Nurse Practitioner
DX: M81.0 Age-related osteoporosis without current pathological fracture (principal); E03.9 Hypothyroidism, unspecified; I10 Essential (primary) hypertension; E78.5 Hyperlipidemia, unspecified; K76.0 Fatty (change of) liver, not elsewhere classified; R16.0 Hepatomegaly, not elsewhere classified
CPT/HCPCS: 36415; 77080; 80053; 80061; 82043; 82570; 84443

== ENCOUNTER → 2023-02-11 12:24 | Outpatient (CLI) | payer MEDICARE, SELFPAY ==
[2023-02-14 15:03] LABS: Fecal Immunochemical Test Negative (Negative)
== END ==
PROVIDERS: PCP Nurse Practitioner; Referring Provider Nurse Practitioner; Visit Provider Nurse Practitioner
DX: Z12.11 Encounter for screening for malignant neoplasm of colon (principal)
CPT/HCPCS: 82274

== ENCOUNTER → 2023-03-26 12:11 | Outpatient (CLI) | payer MEDICARE, SELFPAY ==
[2023-03-26 14:13] LABS: Clostridium Difficile Tox PCR Negative for C. diff (Negative)
== END ==
LOC: LAB 12:12
PROVIDERS: PCP Nurse Practitioner; Referring Provider Nurse Practitioner; Visit Provider Nurse Practitioner
DX: R19.7 Diarrhea, unspecified (principal); R15.9 Full incontinence of feces
CPT/HCPCS: 87177; 87493

== ENCOUNTER → 2023-04-08 13:04 | Outpatient (CLI) | payer MEDICARE, SELFPAY | PROVIDERS: PCP Nurse Practitioner; Referring Provider Nurse Practitioner; Visit Provider Nurse Practitioner | DX: R19.7 Diarrhea, unspecified (principal) | CPT/HCPCS: 87798 ==

== ENCOUNTER → 2023-05-04 11:25 | Outpatient (CLI) | payer MEDICARE, SELFPAY ==
--- NOTE | 2023-05-04 11:26 | DI.RAD.S_ITS ---
PROCEDURE: XR LUMBAR SPINE 2-3V INDICATIONS: back pain TECHNIQUE: 3 views of the lumbar spine were acquired. COMPARISON: None. FINDINGS: Bones: 5 byw-sus-pribsei vertebrae are present. There is moderate dextroscoliosis. No vertebral body compression fractures. No suspicious bony lesions. Degenerative disc disease, moderate at L3-L4 and L4-L5, mild at L2-L3 and L5-S1. Moderate facet arthropathy at L4-L5 and L5-S1. Soft tissues: Overlying bowel gas pattern is normal. No suspicious soft tissue calcifications. IMPRESSION: Scoliosis and moderate degenerative disc and facet disease in lumbar spine. Dictated by: Jose Woods M.D. on 05/04/2023 at 12:44 Approved by: Jose Woods M.D. on 05/04/2023 at 12:45
--- NOTE | 2023-05-04 11:26 | DI.RAD.S_ITS ---
PROCEDURE: XR KUB INDICATIONS: right side pain x 2 weeks TECHNIQUE: One view of the abdomen acquired. COMPARISON: [facility], CT, CT CHEST ABD PEL W CON, 12/31/2020, 13:08. FINDINGS: Surgical changes and devices: None. Bowel: Bowel gas pattern is nonspecific nonobstructive. There is abundant colonic gas. There air-fluid levels in the right lower quadrant. Soft tissues: No suspicious abdominal calcifications. Visualized solid organ contours appear normal in size. Bones: No suspicious bony lesions. Scoliosis. Degenerative changes in lumbar spine. IMPRESSION: 1. No urinary stones are identified on this exam. If there is high clinical suspicion for urinary stones, consider CT KUB. 2. Nonspecific non-obstructive bowel gas pattern. Dictated by: Jose Woods M.D. on 05/04/2023 at 12:39 Approved by: Jose Woods M.D. on 05/04/2023 at 12:44
== END ==
PROVIDERS: PCP Nurse Practitioner; Referring Provider Physician Assistant; Visit Provider Physician Assistant
DX: M51.36 Other intervertebral disc degeneration, lumbar region (principal); M51.27 Other intervertebral disc displacement, lumbosacral region; M47.816 Spondylosis without myelopathy or radiculopathy, lumbar region; M47.817 Spondylosis without myelopathy or radiculopathy, lumbosacral region; M41.9 Scoliosis, unspecified; M54.9 Dorsalgia, unspecified
CPT/HCPCS: 72100; 74018

== ENCOUNTER → 2023-07-11 12:51 | Outpatient (CLI) | payer MEDICARE, SELFPAY ==
[2023-07-11 14:21] LABS: Erythrocyte Sedimentation Rate 9 MM/HR (0-20)
[2023-07-11 14:23] LABS: Add Manual Diff / Slide Review NO; Basophils Absolute Auto 0 /uL (0-100); Basophils Percent Auto 0.7 % (0-2); Eosinophils Absolute Auto 100 /uL (0-450); Hemoglobin 13.4 g/dL (12.0-16.0); Lymphocytes Absolute Auto 2500 /uL (1100-4500); Lymphocytes Percent Auto 35.6 % (25-40); Mean Corpuscular HGB Conc 33.6 % (30-36); Mean Corpuscular Hemoglobin 33.6 PG (26-34); Mean Corpuscular Volume 100.2 fL (80-100); Monocytes Absolute Auto 400 /uL (0-900); Neutrophils Absolute Auto 4000 /uL (1500-7000); Neutrophils Percent Auto 56.7 % (50-75); Platelet Count 218 X10^3/uL (150-400); Red Blood Cell Count 3.99 X10^6/uL (4.0-5.2); Red Cell Distribution Width 14.5 % (11.6-14.8); White Blood Cell Count 7.1 X10^3/uL (4.5-11.0)
[2023-07-11 14:32] LABS: Alanine Aminotransferase 22 IU/L (<35); Albumin 4.5 g/dL (3.5-5.0); Albumin Globulin Ratio 1.5 (1.0-2.8); Alkaline Phosphatase 80 U/L (38-126); Aspartate Aminotransferase 37 IU/L (14-36); BUN Creatinine Ratio 15.5 (6-22); Bilirubin Total 1.1 mg/dL (0.2-1.3); Blood Urea Nitrogen 11 mg/dL (7-17); C-Reactive Protein Quant < 0.5 mg/dL (<1.0); Carbon Dioxide 28 mmol/L (22-32); Chloride 105 mmol/L (98-107); Estimated Glomerular Filt Rate > 60 mL/min (>60); Globulin 3.1 g/dL (1.7-4.1); Glucose 128 mg/dL (80-110); HEMOLYSIS < 15 (0-50); Potassium 3.7 mmol/L (3.4-5.1); Sodium 139 mmol/L (137-145); Total Protein 7.6 g/dL (6.3-8.2)
== END ==
PROVIDERS: PCP Nurse Practitioner; Referring Provider Internal Medicine Rheumatology; Visit Provider Internal Medicine Rheumatology
DX: L40.59 Other psoriatic arthropathy (principal)
CPT/HCPCS: 36415; 80053; 85025; 85651; 86140

== ENCOUNTER 2023-08-23 07:28 | Day surgery (SDC) | payer MEDICARE, SELFPAY ==
--- NOTE | 2023-08-23 | PATH_ITS ---
[facility] Accession Number: [id number] No. of containers..01 Tissue . 01 Material submitted: . colon - RANDOM COLON BIOPSIES . 01 Diagnosis: RANDOM COLON BIOPSIES: Consistent with lymphocytic colitis. STO 08/29/2023 1320 Local . 01 Electronically signed: . Flo Eastman MD, Pathologist NPI- [id number] . 01 Gross description: . RANDOM COLON BIOPSIES: Received in formalin are 4 fragment(s) of mcghee, soft tissue measuring 0.2 x 0.2 x 0.2 cm to 0.7 x 0.2 x 0.2 cm submitted entirely in 1 cassette(s) /ADELAIDE 08/29/2023 1320 Local . 01 Pathologist provided ICD-10: K52.89 . 01 CPT . 666106 Specimen Comment: A courtesy copy of this report has been sent to [phone] Performed at: [address] [id number] MD Flo Eastman MD Phone: [phone]
[2023-08-23] MEDS: LACTATED RINGERS 1,000 ML 42 ML IV (07:53)
[2023-08-23 08:17] VITALS: BP 166/94; PULSE 88; RESP 22; TEMP 36.2; O2SAT 97
--- NOTE | 2023-08-23 08:42 | PM.HP.1 ---
History of Present Illness History of Present Illness Date Patient Seen: 08/23/23 Time Patient Seen: 08:42 Chief complaint: SD Narrative: 82-year-old woman here for diagnostic colonoscopy for altered bowel function. No interval change in history. Please refer to H&P from June 2023 for further detail. [facility] Medical History Change in bowel habits Osteopenia History of breast cancer Hepatic steatosis Hepatomegaly Hypothyroidism Tendinopathy of right shoulder Nontraumatic tear of left supraspinatus tendon COPD (chronic obstructive pulmonary disease) Nontraumatic incomplete bilateral rotator cuff tear Chronic pain of both shoulders Weight loss, unintentional Generalized anxiety disorder Mixed hyperlipidemia Retinal detachment (2008) Genital warts (1973) Herpes (1974) Diverticular disease Psoriasis (1953) Cataract (2011) Chicken pox (1945) Measles (1949) Mumps (1953) Chronic back pain (1977) Depression (1973) Psoriatic arthritis (2002) Hypothyroidism (2014) Atrial fibrillation (2006) Mood disorder 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 Mother Stroke Social History marital status: number of children: 3 household members: spouse lives independently: Yes occupational status: previously employed Smoking Status: Current every day smoker alcohol intake: current substance use type: marijuana Meds Home Medications and Allergies Home Medications Medication Instructions Recorded Confirmed Type ascorbic acid (vitamin C) 500 mg 1,000 mg PO QDAY ##0 04/27/17 07/01/23 History tablet folic acid 400 mcg tablet 0.4 mg PO QDAY ##0 04/27/17 08/23/23 History aspirin 81 mg tablet,delayed 81 mg PO DAILY 03/08/18 08/23/23 History release (Adult Low Dose Aspirin) adalimumab 10 mg/0.1 mL See Rx Instructions SUBCUT Q2W 12/26/18 08/23/23 History subcutaneous syringe kit (Humira(CF)) calcium carbonate 600 mg calcium 600 mg PO DAILY 08/31/19 08/23/23 History (1,500 mg) tablet multivitamin 1 tab PO DAILY 08/31/19 08/23/23 History vitamin B complex 1 cap PO DAILY 08/31/19 08/23/23 History omega 2-rrh-pig-fish oil 1,200 mg 1 cap PO DAILY 12/06/19 07/01/23 History (144 mg-216 mg) capsule (Fish Oil) cholecalciferol (vitamin D3) 25 2,000 unit PO BID #0 tabs 01/16/21 08/23/23 History mcg (1,000 unit) tablet (Vitamin D3) gabapentin 100 mg capsule 100 mg PO BID PRN anxiety or pain 02/08/23 08/23/23 Rx #180 caps gabapentin 300 mg capsule 600 mg (2 x 300 mg) PO BEDTIME 90 02/08/23 08/23/23 Rx days #180 caps lamotrigine 100 mg tablet See Rx Instructions .Route 02/08/23 08/23/23 Rx .COMPLEX #180 tabs meloxicam 7.5 mg tablet 15 mg (2 x 7.5 mg) PO DAILY PRN 02/08/23 08/23/23 Rx pain #180 tabs levothyroxine 50 mcg tablet See Rx Instructions .Route 05/02/23 08/23/23 Rx .COMPLEX #90 tabs atorvastatin 10 mg tablet 10 mg PO ONCE PM #90 tabs 06/08/23 08/23/23 Rx prazosin 1 mg capsule 3 mg (3 x 1 mg) PO BEDTIME #270 06/23/23 08/23/23 Rx caps risperidone 0.5 mg tablet See Rx Instructions .Route 06/27/23 08/23/23 Rx .COMPLEX #90 tabs Allergies Allergy/AdvReac Type Severity Reaction Status Date / Time No Known Drug Allergies Allergy Unknown Verified 07/01/23 09:27 [NO KNOWN DRUG ALLERGIES] adhesive [ADHESIVE] AdvReac Mild BLISTER Verified 07/01/23 09:27 Exam Vital Signs (past 8 hours): - 08/23/23 08:17 Temperature 97.2 F L Pulse Rate 88 Respiratory Rate 22 Blood Pressure 166/94 H Pulse Oximetry 97 Oxygen Delivery Method Room Air Oxygen Delivery Method Room Air Narrative Exam Narrative: General elderly woman alert oriented no acute distress Chest nonlabored respiration Extremities warm well perfused Assessment & Plan Assessment and plan (1) Change in bowel habits: Status: Acute Assessment & Plan narrative: 82-year-old woman with change in bowel habits here for diagnostic colonoscopy. Technical details were discussed. Risks, benefits, alternatives explained. Risks including but not limited to myocardial infarction, aspiration, bleeding, pain, missed lesion, incomplete examination, need for further radiographic studies, intestinal injury, and need for major abdominal surgery were discussed. All questions were answered to their satisfaction, and they are in agreement with this plan.
[2023-08-23 09:19] VITALS: BP 137/77; PULSE 74; RESP 24; TEMP 36.6; O2SAT 97
[2023-08-23 09:24] VITALS: BP 140/75; PULSE 68; RESP 21; O2SAT 97
[2023-08-23 09:29] VITALS: BP 145/85; PULSE 78; RESP 28; O2SAT 99
--- NOTE | 2023-08-23 09:31 | P.OP.COLON_ITS ---
Operative Date/Time/Diagnoses Date of procedure: 08/23/23 Time of procedure: 09:32 Pre-op diagnosis: Altered bowel function Procedure & Clinicians Study performed: Diagnostic colonoscopy Same procedure as scheduled: Yes Indications: Altered bowel function here for diagnostic colonoscopy Surgeon: Javy Quinteros Procedure Notes Procedure in detail: The history and physical was performed/updated and the patient is ASA class is 3. The procedure was discussed in detail with the patient. Potential risks complications including infection, bleeding, missed diagnosis, perforation, need for surgery, and were explained. Their questions were answered and informed consent was obtained. Patient was brought to the procedure room and placed standard monitoring equipment. The patient's vital signs were monitored continuously throughout the entire procedure. Prior to starting time-out was performed. The patient was placed in the left lateral recumbent position. Procedural sedation was administered by anesthesia. Examination began with a thorough inspection of the perianal area there was no evidence of fissures, fistulae, external hemorrhoids or cutaneous malignancy. The colonoscopy scope was then placed into the anal canal and was advanced to the cecum, which was identified by the ileocecal valve, the appendiceal orifice and the confluence of the taenia. The scope was then slowly withdrawn examining colon thoroughly in all directions, irrigating it of any residual stool. The scope was retroflexed within the rectum The patient tolerated the procedure well. They will be discharged once criteria are met. The prep was of good/excellent quality. The withdrawl time was 6 minutes. FINDINGS * No masses or polyps * Slight inflammation of the distal colon. Random colonic biopsies with Jumbo forceps taken. Rule out micro colitis * Internal hemorrhoids Specimen(s): other (Random colon biopsy) Impression: Possible colitis Post-procedure Plan for aftercare: We will notify with biopsy results Disposition: same day surgery
[2023-08-23 09:36] VITALS: BP 161/90; PULSE 69; RESP 20; O2SAT 99
[2023-08-23 09:40] VITALS: BP 166/82; PULSE 73; RESP 22; O2SAT 99
== END 2023-08-23 09:51 | disposition home or self-care (01) ==
PROVIDERS: PCP Nurse Practitioner; Referring Provider Surgery; Visit Provider Surgery
PROC: 0DJD8ZZ Inspection of Lower Intestinal Tract, Via Natural or Artificial Opening Endoscopic (ICD-10-PCS; CPT 45378; principal; 2023-08-23 08:45)
DX: R19.4 Change in bowel habit (principal); K64.8 Other hemorrhoids
CPT/HCPCS: 45380; J2704

== ENCOUNTER → 2024-02-08 09:26 | Outpatient (CLI) | payer MEDICARE, SELFPAY ==
[2024-02-08 10:27] LABS: Add Manual Diff / Slide Review NO; Basophils Absolute Auto 100 /uL (0-100); Eosinophils Absolute Auto 100 /uL (0-450); Hematocrit 40.7 % (36-46); Hemoglobin 13.8 g/dL (12.0-16.0); Lymphocytes Absolute Auto 2000 /uL (1100-4500); Lymphocytes Percent Auto 31.8 % (25-40); Mean Corpuscular HGB Conc 33.8 % (30-36); Mean Corpuscular Hemoglobin 33.7 PG (26-34); Mean Corpuscular Volume 99.7 fL (80-100); Monocytes Absolute Auto 400 /uL (0-900); Monocytes Percent Auto 6.3 % (3-14); Neutrophils Absolute Auto 3800 /uL (1500-7000); Neutrophils Percent Auto 59.9 % (50-75); Platelet Count 207 X10^3/uL (150-400); Red Blood Cell Count 4.09 X10^6/uL (4.0-5.2); Red Cell Distribution Width 13.9 % (11.6-14.8); White Blood Cell Count 6.4 X10^3/uL (4.5-11.0)
[2024-02-08 11:21] LABS: Alanine Aminotransferase 27 IU/L (<35); Albumin 4.5 g/dL (3.5-5.0); Albumin Globulin Ratio 1.6 (1.0-2.8); Alkaline Phosphatase 74 U/L (38-126); Aspartate Aminotransferase 41 IU/L (14-36); BUN Creatinine Ratio 11.5 (6-22); Bilirubin Total 1.1 mg/dL (0.2-1.3); Blood Urea Nitrogen 10 mg/dL (7-17); Calcium 9.4 mg/dL (8.4-10.2); Carbon Dioxide 28 mmol/L (22-32); Chloride 103 mmol/L (98-107); Cholesterol 161 mg/dL (140-199); Estimated Glomerular Filt Rate > 60 mL/min (>60); Globulin 2.9 g/dL (1.7-4.1); Glucose 96 mg/dL (80-110); HDL Cholesterol 105 mg/dL (40-60); HEMOLYSIS < 15 (0-50); LDL Cholesterol Calculated 47 mg/dL (<100); Sodium 139 mmol/L (137-145); Total Protein 7.4 g/dL (6.3-8.2); Triglycerides 47 mg/dL (35-150)
[2024-02-08 11:37] LABS: Free T3, Triiodothyronine Free 3.71 pg/mL (2.77-5.27); Free T4, Direct Thyroxine 0.83 ng/dL (0.78-2.19)
[2024-02-08 11:50] LABS: Thyroid Stimulating Hormone 1.64 uIU/mL (0.47-4.68)
== END ==
PROVIDERS: PCP Family Medicine; Referring Provider Nurse Practitioner; Visit Provider Nurse Practitioner
DX: M85.80 Other specified disorders of bone density and structure, unspecified site (principal); K76.0 Fatty (change of) liver, not elsewhere classified; E78.5 Hyperlipidemia, unspecified; J44.9 Chronic obstructive pulmonary disease, unspecified; I10 Essential (primary) hypertension; F32.9 Major depressive disorder, single episode, unspecified; Z79.899 Other long term (current) drug therapy
CPT/HCPCS: 36415; 80053; 80061; 84439; 84443; 84481; 85025

== ENCOUNTER → 2025-02-07 09:22 | Outpatient (CLI) | payer MEDICARE, SELFPAY ==
--- NOTE | 2025-02-07 09:24 | DI.RAD.S_ITS ---
PROCEDURE: XR HIP W PEL IF DONE LT 2V INDICATIONS: left hip pain TECHNIQUE: AP pelvis with lateral view(s) of the left hip(s). COMPARISON: None. FINDINGS: Bones: No fractures or dislocations. Pelvic ring appears intact. No suspicious bony lesions. There is moderate superior joint space narrowing seen of both hips, with associated remodeling changes with subchondral sclerosis and osteophyte formation. Note is made of osteitis pubis, which is not considered to be frankly abnormal in a woman of this age. Age-appropriate lower lumbar spine degenerative changes are noted. Soft tissues: The visualized bowel gas pattern is normal. No suspicious soft tissue calcifications. IMPRESSION: Moderate bilateral hip degenerative change is seen. If it would be helpful for clinical management decision making, please consider a dedicated hip MRI for further evaluation (assuming that there is no contraindication). If there is strong clinical concern for a labral abnormality, this should be performed according to the arthrogram protocol. Dictated by: Ang Gaona M.D. on 02/09/2025 at 19:15 Approved by: Ang Gaona M.D. on 02/09/2025 at 19:16
[2025-02-07 10:00] LABS: Add Manual Diff / Slide Review NO; Hematocrit 40.7 % (36-46); Hemoglobin 14.0 g/dL (12.0-16.0); Lymphocytes Absolute Auto 2900 /uL (1100-4500); Mean Corpuscular HGB Conc 34.5 % (30-36); Mean Corpuscular Hemoglobin 34.6 PG (26-34); Mean Corpuscular Volume 100.2 fL (80-100); Platelet Count 220 X10^3/uL (150-400)
[2025-02-07 10:28] LABS: Alanine Aminotransferase 20 IU/L (<35); Albumin 4.7 g/dL (3.5-5.0); Albumin Globulin Ratio 1.5 (1.0-2.8); Alkaline Phosphatase 75 U/L (38-126); Blood Urea Nitrogen 12 mg/dL (7-17); Calcium 9.3 mg/dL (8.4-10.2); Carbon Dioxide 30 mmol/L (22-32); Chloride 100 mmol/L (98-107); Cholesterol 157 mg/dL (140-199); Estimated Glomerular Filt Rate > 60 mL/min (>60); Globulin 3.1 g/dL (1.7-4.1); Glucose 98 mg/dL (70-99); HDL Cholesterol 109 mg/dL (40-60); HEMOLYSIS < 15 (0-50); Magnesium 2.0 mg/dL (1.6-2.3); Potassium 4.0 mmol/L (3.4-5.1); Sodium 139 mmol/L (137-145); Total Protein 7.8 g/dL (6.3-8.2); Triglycerides 45 mg/dL (35-150)
[2025-02-07 10:59] LABS: Thyroid Stimulating Hormone 1.17 uIU/mL (0.47-4.68)
[2025-02-07 11:03] LABS: Ferritin 57 ng/mL (11-264)
== END ==
PROVIDERS: PCP Family Medicine; Referring Provider Family Medicine; Visit Provider Family Medicine
DX: M25.552 Pain in left hip (principal); I10 Essential (primary) hypertension; L40.50 Arthropathic psoriasis, unspecified; G25.81 Restless legs syndrome; M79.671 Pain in right foot; M79.672 Pain in left foot; E78.2 Mixed hyperlipidemia; J44.9 Chronic obstructive pulmonary disease, unspecified; E03.9 Hypothyroidism, unspecified; M85.88 Other specified disorders of bone density and structure, other site; E78.5 Hyperlipidemia, unspecified; F10.20 Alcohol dependence, uncomplicated; Z87.891 Personal history of nicotine dependence; Z63.6 Dependent relative needing care at home
CPT/HCPCS: 36415; 73502; 80053; 80061; 82728; 83735; 84443; 85025

== ENCOUNTER → 2025-03-07 11:57 | Outpatient (CLI) | payer MEDICARE, SELFPAY ==
[2025-03-07 15:13] LABS: Add Manual Diff / Slide Review NO; Hematocrit 40.3 % (36-46); Hemoglobin 14.0 g/dL (12.0-16.0); Lymphocytes Absolute Auto 2200 /uL (1100-4500); Mean Corpuscular HGB Conc 34.7 % (30-36); Mean Corpuscular Hemoglobin 34.7 PG (26-34); Mean Corpuscular Volume 99.9 fL (80-100); Platelet Count 246 X10^3/uL (150-400)
[2025-03-07 15:37] LABS: Alanine Aminotransferase 18 IU/L (<35); Albumin 4.9 g/dL (3.5-5.0); Albumin Globulin Ratio 1.4 (1.0-2.8); Alkaline Phosphatase 82 U/L (38-126); Blood Urea Nitrogen 12 mg/dL (7-17); Calcium 8.8 mg/dL (8.4-10.2); Carbon Dioxide 22 mmol/L (22-32); Chloride 104 mmol/L (98-107); Estimated Glomerular Filt Rate > 60 mL/min (>60); Globulin 3.4 g/dL (1.7-4.1); Glucose 92 mg/dL (70-99); HEMOLYSIS 24 (0-50); Potassium 4.5 mmol/L (3.4-5.1); Sodium 138 mmol/L (137-145); Total Protein 8.3 g/dL (6.3-8.2)
== END ==
PROVIDERS: PCP Family Medicine
DX: L40.50 Arthropathic psoriasis, unspecified (principal); Z79.899 Other long term (current) drug therapy
CPT/HCPCS: 36415; 80053; 85025; 85651; 86140